=== PATIENT | female | born 1990 | race African-American/Black ===

== ENCOUNTER 2016-03-29 22:15 | Emergency (ER) | payer OTHER ==
[~2016-03-29] VITALS: Ht 162.6 cm; Wt 65.0 kg
[2016-03-29 22:19] VITALS: BP 112/61; PULSE 77; RESP 18; TEMP 98.1; O2SAT 98
[2016-03-30] MEDS ORDERED: TRAM50TA PO (01:58)
[2016-03-30] MEDS ORDERED: ROBA750T PO (01:58)
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
== END 2016-03-30 02:18 | disposition home or self-care (01) ==
LOC: PHED 22:15 → PHEFT 03-30 02:18
DX: S39.012A Strain of muscle, fascia and tendon of lower back, initial encounter (principal); V49.59XA Passenger injured in collision with other motor vehicles in traffic accident, initial encounter; Y93.89 Activity, other specified; Y92.410 Unspecified street and highway as the place of occurrence of the external cause
CPT/HCPCS: 72100; 99283

== ENCOUNTER → 2017-03-15 | Outpatient (CLI) | payer MEDICAID ==
[~2017-03-15] MED LIST: ROBA750T PO; TRAM50TA PO
== END ==
LOC: HPND 13:25
DX: O36.93X0 Maternal care for fetal problem, unspecified, third trimester, not applicable or unspecified (principal)
CPT/HCPCS: 76816

== ENCOUNTER 2017-03-24 19:17 | Emergency (ER) | payer MEDICAID ==
[2017-03-24 19:43] VITALS: BP 119/63; PULSE 88; RESP 18; TEMP 98.2
--- NOTE | 2017-03-24 20:05 | PD ---
HPI Chief Complaint ?ROM Date Seen: Mar 24, 2017 Time Seen: 19:41 Travel History International Travel<30 Days: No Contact w/Intl Traveler<30Days: No Known Affected Area: No History of Present Illness HPI Pt is a 26y/o @ 31.1wks. She has PNC in [place]. She presents this evening stating that her water broke last night b/c she felt a small puddle while laying in the bed. She was told by her OBGYN to come to [place] for evaluation. She denies ctx or VB. +FM. is complicated by a h/o CS x2. She plans to deliver here but has been unable to find a local clinic who accepts her insurance. Weeks Gestation: 31 Para: 2 : 3 History Past Medical History Medical History: Denies Significant Hx Obstetric History Obstetric History 1. CS for arrest of dilation 2. failed at 9cm for arrest of descent 3. current Past Surgical History Narrative Surgical CSx2 Family History Family History: Negative Social History Alcohol Use: No Tobacco Use: No Substance Abuse: No Allergies-Medications (Allergen,Severity, Reaction): Coded Allergies: fluconazole (Unverified Allergy, Severe, 09/21/16) penicillin G (Unverified Allergy, Severe, Hives, 09/21/16) Home Meds Active Scripts Methocarbamol (Robaxin) 750 Mg Tab, 750 MG PO Q6HR for Muscle Spasm, #10 TAB 0 Refills Prov:Cheri Ambriz MD 03/30/16 Tramadol (Tramadol) 50 Mg Tab, 50 MG PO Q6H Y for PAIN, #12 TAB 0 Refills Prov:Cheri Ambriz MD 03/30/16 Review of Systems Except as stated in HPI: all other systems reviewed are Neg Physical Exam Narrative General: well developed, well nourished, no acute distress HEENT: normocephalic atraumatic, extraocular movements intact, neck supple Abdomen: soft, gravid, nontender, nondistended Uterus: fundus above umbilicus Extremities: full range of motion Skin: normal coloration, no rashes, no suspicious skin lesions noted Neurologic: cranial nerves 2-12 grossly intact, normal muscle tone, normal gait Psychiatric: normal mood and affect, appropriate FHTs: 135, +accels, no decels, moderate variability, reactive [place]: quiet Cvx: deferred Data Data Vital Signs Reviewed: Yes Orders Orders Vital Signs (Adult) .ON ADMISSION (03/24/17 19:31) ^ Labor Status (03/24/17:31) ^ Non Stress Test (03/24/17:31) Pamg-1 Test .ONCE (03/24/17 19:31) MDM Plan 26y/o @ 31.1wks with ?PPROM -- amnisure neg -- toco quiet -- FHTs cat 1 Dispo: stable for d/c home; provided [facility] information and advised pt that she should call here at 36wks if she is without local care but desires delivery here and we will attempt to accommodate Diagnosis Diagnosis: Primary Impression: 31 weeks gestation of Additional Impressions: No leakage of amniotic fluid into vagina History of 2 sections Stacey Lott MD Mar 24, 2017 20:05
== END 2017-03-24 20:30 | disposition home or self-care (01) ==
LOC: HOBED 19:17
DX: O26.93 Pregnancy related conditions, unspecified, third trimester (principal); Z3A.31 31 weeks gestation of pregnancy
CPT/HCPCS: 84112; 99283

== ENCOUNTER 2017-04-08 13:43 | Emergency (ER) | payer MEDICAID ==
[~2017-04-08] VITALS: Ht 165.1 cm; Wt 84.4 kg
--- NOTE | 2017-04-08 14:38 | PD ---
HPI Chief Complaint Possible PROM Date Seen: Apr 08, 2017 Travel History International Travel<30 Days: No Contact w/Intl Traveler<30Days: No Known Affected Area: No History of Present Illness HPI Ms. Pizarro is a 26 y/o at 33/2 weeks gestation presenting for possible PROM. She states that around 1300 today her coworkers noticed she had fluid running down her pants. The fluid was clear and she did not feel like it was urine. She endorses good movement and denies any vaginal discharge, bleeding, or dysuria. She has no other complaints and denies any fevers, chills, SOB, chest pain, NVD, ABD pain, or calf tenderness. Weeks Gestation: 33 Para: 2 : 3 History Past Medical History Medical History: Denies Significant Hx Obstetric History Obstetric History 1. CS for arrest of dilation/nuchal cord 2. failed at 9cm for arrest of descent 3. current uncomplicated Past Surgical History Narrative Surgical Family History Family History: Negative Social History Alcohol Use: No Tobacco Use: No Substance Abuse: No Allergies-Medications (Allergen,Severity, Reaction): Coded Allergies: fluconazole (Unverified Allergy, Severe, 09/21/16) penicillin G (Unverified Allergy, Severe, Hives, 09/21/16) Home Meds Active Scripts Methocarbamol (Robaxin) 750 Mg Tab, 750 MG PO Q6HR for Muscle Spasm, #10 TAB 0 Refills Prov:Cheri Ambriz MD 03/30/16 Tramadol (Tramadol) 50 Mg Tab, 50 MG PO Q6H Y for PAIN, #12 TAB 0 Refills Prov:Cheri Ambriz MD 03/30/16 Review of Systems Except as stated in HPI: all other systems reviewed are Neg (Per HPI) Physical Exam Narrative GENERAL: Well-nourished, well-developed patient. SKIN: Warm and dry. HEAD: Normocephalic and atraumatic. EYES: No scleral icterus. No injection or drainage. ENT: No nasal drainage noted. Mucous membranes pink. Airway patent. NECK: Supple, trachea midline. No JVD. CARDIOVASCULAR: Regular rate and rhythm without murmurs, gallops, or rubs. RESPIRATORY: Breath sounds equal bilaterally. No accessory muscle use. ABDOMEN/GI: Abdomen soft, non-tender, bowel sounds present, no rebound, no guarding Gravid to 33 weeks size GENITOURINARY: External Genitalia: intact and normal in appearance Cervix: Closed per speculum exam, speculum exam WNL Membranes: Intact Uterine Contractions: None FHT's: Category: 1 Baseline: 130s Reactive: Positive Variability: Moderate Decels: None EXTREMITIES: No cyanosis or edema. BACK: Nontender without obvious deformity. No CVA tenderness. NEUROLOGICAL: Awake and alert. Motor and sensory grossly within normal limits. Five out of 5 muscle strength in all muscle groups. Normal speech. Data Data Vital Signs Reviewed: Yes [facility] Medical Record Reviewed: Yes Plan Ms. Pizarro is a 26 y/o at 33/2 weeks gestation presenting for possible PROM. 1. IUP at 33 weeks -Continue routine antepartum care -Encourage PNV and oral hydration -FHT category 1, reassuring 2. R/O PROM -Amnisure negative x2 -Speculum exam WNL as above -Likely due to incontinence per patient history Patient to be discharged home with close OB follow up. SDW: Dr. Medeiros Diagnosis Diagnosis: Primary Impression: 33 weeks gestation of Additional Impression: Incontinence Disposition: 01 DISCHARGE HOME Condition: Stable Patient Instructions: General Instructions, Movement (ED), Having Your Baby: The Labor Process (GEN) Chalo Matthews MD R2 Apr 08, 2017 14:38
== END 2017-04-08 15:00 | disposition home or self-care (01) ==
LOC: HOBED 13:43
DX: O26.893 Other specified pregnancy related conditions, third trimester (principal); R32 Unspecified urinary incontinence; Z3A.33 33 weeks gestation of pregnancy
CPT/HCPCS: 59025; 84112